=== PATIENT | male | born 1965 | race Caucasian/White ===

== ENCOUNTER 2023-05-02 09:45 | Outpatient (REF) | payer BC, SELFPAY ==
[2023-05-02 11:03] LABS: Erythrocyte Sedimentation Rate 4 MM/HR (0-15)
[2023-05-02 11:25] LABS: Thyroid Stimulating Hormone 3.24 uIU/mL (0.32-4.0)
[2023-05-02 11:55] LABS: T4 Thyroxine 6.5 ug/dL (4.5-12.0)
== END 2023-05-02 09:46 | disposition home or self-care (01) ==
LOC: HO.LAB 09:45
PROVIDERS: PCP Family Medicine; Visit Provider Psychiatry & Neurology Neurology
DX: E03.9 Hypothyroidism, unspecified (principal)
CPT/HCPCS: 36415; 82550; 84436; 84443; 85652

== ENCOUNTER → 2023-08-27 12:11 | Outpatient (REF) | payer BC, SELFPAY | LOC: HO.SL 12:11 | PROVIDERS: PCP Family Medicine; Visit Provider Family Medicine | DX: G47.33 Obstructive sleep apnea (adult) (pediatric) (principal) | CPT/HCPCS: 95806 ==

== ENCOUNTER → 2023-08-27 19:00 | Outpatient (BNV) | payer BC, SELFPAY | PROVIDERS: PCP Family Medicine; Visit Provider Internal Medicine | DX: G47.33 Obstructive sleep apnea (adult) (pediatric) (principal) | CPT/HCPCS: 95806 ==